=== PATIENT | male | born 1950 | race Caucasian/White ===

== ENCOUNTER → 2017-09-15 | Outpatient (CLI) | payer MEDICARE, OTHER ==
[2017-09-15 14:47] LABS: Anion Gap 11 mmol/L; Blood Urea Nitrogen 20 mg/dL (9-20); Carbon Dioxide 25 mmol/L (22-30); Chloride 103 mmol/L (98-107); Non-African American GFR(MDRD) >60 (>60 ml/min/1.73 sqM); Potassium 4.4 mmol/L (3.5-5.1); Sodium 139 mmol/L (137-145)
[2017-09-15 14:48] LABS: CH 31.3; CHCM 33.1; HCT 48.5 % (39.0-53.0); HDW 2.53; HGB 15.7 gm/dL (13.0-17.5); MCH 30.9 pg (25.0-35.0); MCHC 32.5 g/dL (31.0-37.0); MCV 95.1 fL (80.0-100.0); Mean Platelet Volume 7.9; RDW 12.9 % (11.5-15.5); WBC 6.1 k/uL (3.8-10.6)
== END | disposition home or self-care (01) ==
LOC: LABPAT 13:56
PROVIDERS: ATTEND Internal Medicine Interventional Cardiology
DX: Z01.812 Encounter for preprocedural laboratory examination (principal); I44.2 Atrioventricular block, complete
CPT/HCPCS: 36415; 80051; 82565; 84520; 85027

== ENCOUNTER 2017-09-16 08:14 | Day surgery (SDC) | payer MEDICARE, OTHER ==
[~2017-09-16 08:14] MED LIST: ceFAZolin 1,000 MG in SODIUM CHLORIDE 0.9% IRRIGATIO 250 ML IRRIGATION ONE; ceFAZolin 2 GM in SODIUM CHLORIDE 0.9% 100 ML IVPB ONE
[2017-09-16] MEDS: SODIUM CHLORIDE 0.9% 1,000 ML IV SCH ×3 (08:38→17:36)
[2017-09-16] MEDS: IOHEXOL 300 MG/ML 50 ML BOTTLE INJ ONE ×2 (09:55→14:28)
[2017-09-16] MEDS ORDERED: MIDAZOLAM 2 MG/2 ML VIAL ONE (10:14)
[2017-09-16] MEDS ORDERED: MIDAZOLAM 2 MG/2 ML VIAL IVP ONE (10:32)
[2017-09-16] MEDS ORDERED: LIDOCAINE 2% INJ 20 MG/ML SQ ONE ×2 (10:36)
[2017-09-16] MEDS: LIDOCAINE 2% INJ 20 MG/ML SQ ONE ×2 (11:00→11:42)
[2017-09-16] MEDS ORDERED: HYDROmorphone 2 MG/ML 1 ML SYRINGE ONE (12:00)
[2017-09-16] MEDS ORDERED: HYDROmorphone 2 MG/ML 1 ML SYRINGE IVP ONE (12:03)
[2017-09-16] MEDS ORDERED: SODIUM CHLORIDE 0.9% 500 ML IV ONE (12:20)
[2017-09-16] MEDS ORDERED: NOREPINEPHRIN 4 MG-0.9% NS PMX 4 MG/250 ML ML IV ONE (12:20)
[2017-09-16] MEDS ORDERED: ATROPINE SULFATE 0.1 MG/ML 10ML SYRINGE IVP ONE (12:23)
[2017-09-16] MEDS ORDERED: DOPamine DRIP 250 ML IV ONE (13:15)
[2017-09-16] MEDS ORDERED: SODIUM CHLORIDE 0.9% 1,000 ML IV ONE (15:08)
[2017-09-16] MEDS ORDERED: ACETAMINOPHEN TAB 325 MG TAB PO PRN (15:40)
[2017-09-16] MEDS ORDERED: SODIUM CHLORIDE 0.9% 1,000 ML IV SCH (15:45)
[2017-09-16 17:00] VITALS: BMI 30.9
--- NOTE | 2017-09-16 17:23 | XR ---
EXAMINATION TYPE: XR chest 1V portable DATE OF EXAM: 09/16/2017 COMPARISON: NONE HISTORY: Check pacemaker lead TECHNIQUE: Single frontal view of the chest is obtained. FINDINGS: There is no heart failure nor confluent pneumonic infiltrate. Costophrenic angles are ta r. There is a left axillary pacemaker with the lead tips over the right ventricle. Lead appear intact . There is no sign of pleural effusion. IMPRESSION: No active cardiopulmonary disease.
--- NOTE | 2017-09-16 17:27 | PCN ---
PROCEDURE NOTE DATE OF SERVICE: 09/16/2017 PROCEDURES: 1. Transvenous temporary pacemaker from the right femoral venous approach. 2. Dual-chamber permanent pacemaker placement from left infraclavicular approach. PERFORMED BY: Dr. Jimbo Haywood. CLINICAL INFORMATION: Mr. Ulises Manriquez is a 66-year-old gentleman with hypertension, who was seen by me in the office yesterday with a complete heart block picture and underlying right bundle with first-degree with intermittent complete heart block and 2:1 block. He has symptoms of dizziness, lightheadedness without actual correlation. In view of his significant conduction system disease with a documented complete heart block, he was advised to have a dual-chamber pacemaker and brought in for the procedure. The risks, benefits, options, rationale were explained to the patient and . PROCEDURE NOTE: Under local anesthesia and strict aseptic precautions, a 6-Portuguese introducer was placed in the right femoral vein. A balloon tipped 6-Portuguese catheter was positioned in the right ventricular apex. Good thresholds were obtained. Catheter was placed at the apex with a backup rate of 40 and mA of 5.0. I then unscrubbed and rescrubbed again for permanent pacemaker placement. I tried to gain access into the left axillary vein, but I had some difficulty. Dr. Damian Ring from cardiac surgery helped me with gaining the access. A 3.5 inch linear incision was made medial and parallel to the left deltopectoral groove. Using blunt dissection and cautery, I a surgical pocket was made. Hemostasis was secured. When I did some manipulation the patient had a transient vasovagal phenomena. Under fluoroscopic guidance, a 6-Portuguese introducer was placed in the axillary artery. A ventricular lead was positioned at the right ventricular septum with good threshold and capture. The lead was secured to the underlying muscle. I then tried with multiple times, the atrial lead, but I could not get a good threshold. I spent almost an hour and a half trying to position the atrial lead. I then realized that the lead was probably defective because the screwing mechanism seemed to be off. I requested Dr. Guillen to assist. He also felt the lead could be defective and suggested we use a tined lead. He gained access into the axillary artery and a 7-Portuguese introducer was placed. A tined lead was positioned in the right atrial appendage. Good thresholds and sensitivities were obtained. Both the leads were secured to the underlying muscle. The leads were then connected to the dual- chamber pacemaker. The surgical pocket was closed in 2 layers. Antibiotic solution was used to irrigate the pocket. Pocket was actually drenched with the antibiotic solution with a sponge. Good hemostasis was secured. Good thresholds and sensitivities were obtained. The patient tolerated the procedure very well. He was sent to the room in a stable condition. This was a very prolonged procedure. Moderate conscious sedation was provided for over 3 hours. There were no complications but it was a very long procedure and I spent a lot of time trying to position the atrial lead, but it appears that the lead was defective and once we changed the lead it seemed to have excellent numbers immediately. The details of the procedure were discussed with the patient and with his and son. The patient will be observed in the observation unit until tomorrow. I expect to discharge him tomorrow afternoon if he remains stable. PACEMAKER DETAILS: Pulse generator courtesy van driver [employer], model Essentio MRI DRIS 1, model mL 111, serial #[id number], then ventricular lead was an active fixation lead courtesy van driver [employer], model number in Ingevity MRI 1 bipolar 52 cm lead, model 7741, serial #[id number], position was in the right ventricular septum. Atrial lead courtesy van driver [employer], model Ingevity MRI IS1 passive atrial tined lead, 45 cm long, model 7735, serial #[id number]. Position is in the right atrial appendage. The ventricular threshold was 0.5 V at 0.5 milliseconds. The atrial lead was a threshold was 0.7 V at 0.5 mV. Right atrial threshold was 0.7 V at 0.5 milliseconds. Right ventricular threshold was 0.5 V at 0.5 milliseconds. R-waves were 9.5 V. P waves were 3.4 V. The pacemaker setting was DDDR, lower rate of 60 and high rate of 120. Patient tolerated procedure well without complication. MMODL / IJN: [id number] /
[2017-09-16] MEDS: ceFAZolin 2 GM in SODIUM CHLORIDE 0.9% 100 ML IVPB SCH ×2 (17:30→22:47)
[2017-09-16] MEDS ORDERED: HYDROcodone/APAP 5-325MG 1 EACH TAB PO PRN (17:37)
--- NOTE | 2017-09-16 20:13 | ECHOF ---
Referral Reason:r/a pericardial effusion MEASUREMENTS -------- HEIGHT: 172.7 cm WEIGHT: 92.1 kg BP: 102/61 FINDINGS -------- This was a technically adequate study. Limited study for pericardial effusion. Overall left ventricular systolic function is normal with, an EF between 55 - 60 %. There is a trivial pericardial effusion present. CONCLUSIONS -------- 1. This was a technically adequate study. 2. Limited study for pericardial effusion. 3. Overall left ventricular systolic function is normal with, an EF between 55 - 60 %. 4. There is a trivial pericardial effusion present. POLYSOMNOGRAPHER: Chris Rodriguez RDCS
[2017-09-17] MEDS: ceFAZolin 2 GM in SODIUM CHLORIDE 0.9% 100 ML IVPB SCH ×2 (05:17→10:36)
--- NOTE | 2017-09-17 06:30 | XR ---
EXAMINATION TYPE: XR chest 2V DATE OF EXAM: 09/17/2017 HISTORY: Lead placement check. REFERENCE: Previous study dated 09/16/2017. FINDINGS: There is a bipolar pacing device present on the left. The heart is mildly enlarged. The lungs are clear. There is blunting of the left CP angle. I could no t exclude a small left effusion. IMPRESSION: 1. SATISFACTORY PACEMAKER LEAD PLACEMENT. 2. MILD CARDIOMEGALY. 3. I COULD NOT EXCLUDE A SMALL LEFT EFFUSION.
[2017-09-17] MEDS ORDERED: LISINOPRIL 10 MG TAB PO SCH (09:00)
[2017-09-17 09:19] LABS: Basophils % (A) 0 %; CH 31.1; CHCM 32.9; Eosinophils % (A) 0 %; HCT 44.5 % (39.0-53.0); HDW 2.48; HGB 14.4 gm/dL (13.0-17.5); Luc # (Auto) 0.05; Luc % (Auto) 1; Lymphocytes # (A) 0.9 k/uL (1.0-4.8); Lymphocytes % (A) 11 %; MCH 30.9 pg (25.0-35.0); MCHC 32.5 g/dL (31.0-37.0); MCV 95.1 fL (80.0-100.0); Mean Platelet Volume 7.8; Monocytes # (A) 0.4 k/uL (0-1.0); Monocytes % (A) 4 %; Neutrophils # (A) 6.8 k/uL (1.3-7.7); Neutrophils % (A) 84 %; RBC 4.68 m/uL (4.30-5.90); RDW 12.8 % (11.5-15.5); WBC 8.2 k/uL (3.8-10.6); WBC (Perox) 8.23
--- NOTE | 2017-09-17 12:04 | DS ---
DISCHARGE SUMMARY DATE OF ADMISSION: 09/16/2017 DATE OF DISCHARGE: 09/17/2017 DIAGNOSES: 1. Complete heart block. 2. Hypertension. PROCEDURES PERFORMED: 1. Transvenous temporary pacemaker from the right femoral venous approach. 2. Dual-chamber permanent pacemaker, left infraclavicular location. HISTORY OF PRESENT ILLNESS: Mr. Ulises Manriquez was admitted electively for a permanent pacemaker that was performed yesterday. Temporary pacemaker was placed expeditiously. The permanent pacemaker ventricular lead was placed expeditiously, but I had a lot of difficulty positioning the atrial lead. Eventually after trying for over an hour I switched over to a bryan lead and with this we were able to get good sensitivities and thresholds. This morning, patient is asymptomatic. His pacemaker site is clean and dry. Blood pressure is 140/70, pulse rate is about 68 per minute. He is asymptomatic. Her vital signs are stable. Chest x-ray reveals no significant issues. Some blunting of left costophrenic angle is noted. I performed an echocardiogram. The LV systolic function is normal with concentric LVH and there is no evidence of any significant pericardial effusion. His hemoglobin is good. Pacer checked, parameters are excellent. Physical exam revealed no JVD. S1-S2 heard normally. Lungs are clear. Abdomen is soft, nontender. Lower extremities reveal normal pulses. The patient will be discharged this afternoon. I will give him Keflex 500 mg t.i.d. for a total of 6 doses. He is advised to wear a sling for his left arm and not to do any outstretched activity until he sees me in the office on August at 9 a.m. All discharge instructions regarding activity, diet, medications were given. He will take an extra Strength Tylenol if he has pain. I will see him in the office on the and he will be discharged later on this afternoon. MMODL / IJN: [id number] / ILENE
[2017-09-17 12:40] VITALS: BP 131/75; PULSE 69; RESP 16
[2017-09-17 13:15] VITALS: TEMP 99
--- NOTE | 2017-09-17 15:26 | ECHOF ---
Referral Reason:pericardial effusion MEASUREMENTS -------- HEIGHT: 172.7 cm WEIGHT: 92.1 kg BP: FINDINGS -------- Sinus rhythm. Limited Study There is no pericardial effusion. CONCLUSIONS -------- 1. Sinus rhythm. 2. Limited Study 3. There is no pericardial effusion. FITNESS AND WELLNESS COORDINATOR: Sierra De La Cruz RDCS
== END 2017-09-17 14:47 | disposition home or self-care (01) ==
LOC: CATHEP 08:14 → 3OBS 15:05 → CATHEP 09-17 14:47
PROVIDERS: ATTEND Internal Medicine Interventional Cardiology
DX: I44.2 Atrioventricular block, complete (principal); I45.10 Unspecified right bundle-branch block; I10 Essential (primary) hypertension; Z79.82 Long term (current) use of aspirin; Z79.899 Other long term (current) drug therapy; Z87.891 Personal history of nicotine dependence
CPT/HCPCS: 93308 ×2; 33208; 84443; 85025; 71010; 71020; 99152; 99153 ×18; C1894; C1769 ×3; C1785; C1898; J2001; J2250; J1170; J0690 ×2; J0461; J1265; Q9967

== ENCOUNTER 2018-02-23 09:20 | Inpatient (IN) | payer MEDICARE, OTHER ==
--- NOTE | 2018-02-23 11:01 | XR ---
EXAMINATION TYPE: XR chest 2V DATE OF EXAM: 02/23/2018 COMPARISON: 09/17/2017 HISTORY: 67-year-old male check vent lead position TECHNIQUE: PA and lateral views FINDINGS: Heart normal size. Aorta and pulmonary vasculature within normal limits. Strandy atelectasis mid and lower lungs. No consolidation or pleural effusion. Left anterior chest wall pacemaker generator with right atrial and right ventricular leads. Possible slight kink an irregularity in the right ventricular lead near where it traverses the left clavicle. IMPRESSION: 1. No acute cardiopulmonary process. 2. Stable positioning of the 2-lead pacemaker. However, there may be a new kink and slight irregulari ty of the right ventricular lead at the level of the clavicle.
[2018-02-23] MEDS ORDERED: ceFAZolin 1,000 MG in SODIUM CHLORIDE 0.9% IRRIGATIO 250 ML IRRIGATION ONE (11:05)
[2018-02-23] MEDS: SODIUM CHLORIDE 0.9% 1,000 ML IV SCH (11:18)
[2018-02-23 11:39] LABS: Basophils % (A) 1 %; Eosinophils # (A) 0.1 k/uL (0-0.7); Eosinophils % (A) 2 %; HCT 46.5 % (39.0-53.0); HGB 15.8 gm/dL (13.0-17.5); Lymphocytes # (A) 1.7 k/uL (1.0-4.8); Lymphocytes % (A) 27 %; MCH 30.2 pg (25.0-35.0); MCHC 33.9 g/dL (31.0-37.0); Mean Platelet Volume 7.8; Monocytes # (A) 0.5 k/uL (0-1.0); Monocytes % (A) 8 %; Neutrophils # (A) 3.7 k/uL (1.3-7.7); Neutrophils % (A) 59 %; Platelet Count 202 k/uL (150-450); RBC 5.23 m/uL (4.30-5.90); RDW 13.1 % (11.5-15.5); WBC 6.3 k/uL (3.8-10.6)
[2018-02-23 11:55] LABS: Calcium 9.4 mg/dL (8.4-10.2); Potassium 4.2 mmol/L (3.5-5.1)
[2018-02-23] MEDS ORDERED: IODIXANOL 270 MG/ML 50 ML ML IV ONE (12:30)
[2018-02-23] MEDS ORDERED: LIDOCAINE 2% INJ 20 MG/ML SQ ONE ×2 (12:34→12:55)
[2018-02-23] MEDS: MIDAZOLAM 2 MG/2 ML VIAL IV ONE ×2 (12:35→12:59)
[2018-02-23] MEDS: ceFAZolin IN SWFI 2 GM/20 ML SYRINGE IVP STA ×2 (12:54→13:00)
[2018-02-23 15:18] LABS: Glucose,Whole Blood 82 mg/dL (75-99)
[2018-02-23] MEDS ORDERED: NALOXONE 0.4 MG/ML 1 ML VIAL IV PRN (15:19)
[2018-02-23 15:53] LABS: Magnesium 2.1 mg/dL (1.6-2.3); Phosphorus 3.3 mg/dL (2.5-4.5)
[2018-02-23] MEDS: ACETAMINOPHEN TAB 325 MG TAB PO PRN (16:27)
[2018-02-23] MEDS ORDERED: HYDROcodone/APAP 5-325MG 1 EACH TAB PO PRN (18:44)
--- NOTE | 2018-02-23 20:15 | HP ---
HISTORY AND PHYSICAL This is a 67-year-old gentleman with a history of hypertensive cardiovascular disease, history of complete AV block with a permanent pacemaker that was placed in August 2017, and also obstructive sleep apnea syndrome, for which he uses a CPAP on a regular basis. This gentleman was initially seen by me in August and underwent a permanent pacemaker that was performed on September 16, 2017. He had a dual-chamber permanent pacemaker from left infraclavicular approach. He had a [employer] device with a 7-Qatari bryan lead in the right atrium and a 6-Qatari screw-in lead in the right ventricular septum. Recently patient was seen in the office about 3 days ago and was doing very well. However, about 36 hours ago he had an EKG performed at his primary care physician and the EKG revealed a right bundle with a heart rate in the 40s, and therefore I was called. I evaluated him this morning in the office and noted that his ventricular lead had a very high impedance, suggesting that this was not functioning well. From a bipolar it switched over to a unipolar and it was functioning in that mode. Therefore I recommended that we admit him to the hospital and perform an exploration of his pulse generator, assess the ventricular lead, and then consider a revision of this lead if it is defective. This discussion happened in the office this morning, and I talked to the patient as well as his at great length and explained to them that the original lead was probably defective and therefore we should replace it. He was advised to be hospitalized. The rationale, risks, benefits and options related to the procedure were explained to the patient in great detail. PAST MEDICAL HISTORY: 1. High-grade AV block diagnosed in August 2017 followed by a dual-chamber [employer] pacemaker. 2. Hypertensive cardiovascular disease. 3. Patient is hard of hearing. 4. Obstructive sleep apnea syndrome. He wears a CPAP on a regular basis. MEDICATIONS AT HOME: 1. Lisinopril/hydrochlorothiazide 20/12.5 one tablet daily. 2. Aspirin 81 mg daily. 3. Multivitamins. 4. Vitamin D. ALLERGIES: NONE. REVIEW OF SYSTEMS: Unremarkable for any major medical issues. Patient is hard of hearing. He does not have any hematemesis, melena, genitourinary symptoms, fever with chills or cough with expectoration. PHYSICAL EXAMINATION: Blood pressure was 130/80. Pulse rate was 70 per minute. HEENT: Unremarkable. Fundus was not examined by me. NECK: Supple. No JVD. I do not hear a carotid bruit. Heart exam reveals S1, S2 heard normally without any significant rub, murmur or gallop. Lungs are clear. ABDOMEN: Soft, nontender. Lower extremities reveal normal pulses. No edema. Central nervous system is normal. Pacemaker site looks clean and dry. IMPRESSION: 1. Intermittent pacemaker malfunction with evidence of high impedance in ventricular lead suggesting that this is a defective lead. 2. Hypertension. 3. Obstructive sleep apnea syndrome. 4. Patient is hard of hearing. RECOMMENDATION: I am recommending hospitalization with possible revision of his ventricular lead after checking it. Rationale, risks, benefits and options were explained to the patient and his and he was sent to the hospital from the office. MMGURWINDERL / NOEMÍN: [id number] /
--- NOTE | 2018-02-23 20:21 | PN ---
PROGRESS NOTE I evaluated Mr. Manriquez about 6:50 this evening. I came back from the office and evaluated him. His blood pressure is 128/70, pulse rate is about 70, and his pacemaker at this time seems to be functioning well. Earlier in the day, I performed an attempted revision of his ventricular lead by exploring the pocket, and the leads were checked. Atrial lead was functioning well, but ventricular lead had a very high impedance. I tried to gain access into the axillary and subclavian vein without success. It appears that the vein is occluded. I was able to gain access, but I could not advance the guidewire, and venography also showed that there may be a subtotal obstruction of the subclavian and axillary vein. Therefore I closed the pocket with the same leads and I also had performed a temporary transvenous pacemaker from the right femoral approach. Patient was then moved to the ICU. His permanent pacemaker is functioning well. The site is clean and dry. His right groin site is also clean and dry where he has a temporary pacemaker as a backup at a rate of 50. I explained to the patient and his that we will transfer him to [facility] for lead extraction, which is not performed here. He will first probably have a screw-in lead at the right ventricular apex, which will be a temporary lead connected to a pacemaker from the left internal jugular approach. Subsequently he will have a lead extraction and venoplasty and possibly an additional ventricular lead from the same side if possible. I spoke to Dr. Carlos Baltazar, the director of electrophysiology at [facility], and he will make the transfer arrangements tomorrow; he or one of his team members will perform the procedure. This matter was discussed with the patient and his in great detail. The patient is asymptomatic, doing well today. He will be observed very closely. We will keep him n.p.o. tomorrow morning and I will be sending with him the previous procedure notes as well as my history and physical. Discussed my thoughts in detail with the patient and his . They are in agreement with the above plan. PERRY / ANDI: [id number] /
--- NOTE | 2018-02-23 20:21 | CE ---
CARDIAC ELECTROPHYSIOLOGY REPORT DATE OF SERVICE: 02/23/2018. PROCEDURE: Exploration of the pacemaker pocket with interrogation of the leads directly for possible revision of ventricular lead. PERFORMED BY: Dr. Elvin Haywood. MODERATE CONSCIOUS SEDATION TIME: The patient was sedated with a combination of Versed and fentanyl for a duration of more than 1 hour. His oxygen saturation, EKG and vital signs were monitored closely. CLINICAL INFORMATION: Mr. Ulises Manriquez is a 67-year-old gentleman with a history of permanent pacemaker placed in August 2017. At that time, he presented with a complete heart block with a right bundle branch block pattern. He had a tined lead in the right atrium, a [employer] lead and a screw-in lead, which was also a [employer] lead in the right ventricle screwed into the septum. Because of the high impedance and malfunction, patient was advised to have exploration and possible revision of the ventricular lead and brought in for the procedure. He was advised to have a transvenous temporary pacemaker prior to exploration. PROCEDURE NOTE: Under strict aseptic precautions and local anesthesia, a 6-Khmer introducer was placed in the right femoral vein. Under fluoroscopic guidance, a balloon tipped pacemaker was advanced and positioned in the right ventricular apex. The threshold was 0.4 mV. The pacemaker was connected to the battery pack and this was placed at a backup rate of 40 beats per minute. The sheath was sutured. I then unscrubbed and after rescrubbing, I went ahead and performed the pacemaker pocket exploration. Under strict aseptic precautions and local anesthesia, a linear incision was made over the pulse generator in the left infraclavicular area. Blunt dissection was carried down to the pulse generator and this was released from the pocket. I then unscrewed the atrial lead and checked it for its threshold sensitivities and impedance. This worked perfectly. I then screwed the lead back in. With temporary pacemaker as a backup, I then unscrewed the ventricular lead and checked for thresholds and sensitivities and impedance. The impedance was more than 3000, suggesting that the lead was not functioning well. I then placed the lead back in the pulse generator. Using a micropuncture needle technique. After doing a venogram, I tried to gain access into the axillary vein. On the venogram the flow into the subclavian vein was somewhat suboptimal and there were already collaterals noted raising the possibility that this may be subtotally occluded. However, I gained access into the axillary vein, but I could not advance the guidewire. I then requested the assistance of Dr. Lauro Morrow who also came in to help me at this juncture. He was able to also gain access and advanced a micropuncture guidewire, but could not go beyond the axillary vein because of a subtotal occlusion. A venogram was then performed again through the micropuncture needle and noted that there was a subtotal obstruction. At this stage I decided to close the pocket in 3 layers and explained to the patient and also his that we will defer any intervention today and we will transfer him to [facility] or [facility] and I recommended that we send him to a facility where they will do a lead extraction. Patient will probably require laser lead extraction and then venoplasty and advancement of a new lead through the same axillary vein if possible. I explained this to the patient and and he was sent to the ICU and will be monitored closely. I will make transfer arrangements after due discussion with electrophysiologists either at [facility] or [facility]. I also discussed with Dr. Guillen who felt that transferring him to a facility where they will do lead extraction will be a much better approach rather than doing a new pacemaker from the right side which will then create a situation with 4 leads in his heart. This was also explained to the patient that I communicated with Dr. Guillen and we will therefore make the transfer arrangements as soon as possible. It. The patient was then transferred after the completion of the procedure to the ICU in a stable condition. The patient received Kefzol 2 g during the procedure and this will be continued at 1 g q.8 hours for a total of 5 doses. MMODL / IJN: [id number] /
[2018-02-23] MEDS: HEPARIN SODIUM,PORCINE 5,000 UNIT/ML 1 ML VIAL SQ SCH (21:11)
[2018-02-24] MEDS: SODIUM CHLORIDE 0.9% 1,000 ML IV SCH (02:00)
[2018-02-24 05:37] LABS: Basophils % (A) 1 %; Eosinophils # (A) 0.1 k/uL (0-0.7); Eosinophils % (A) 2 %; HCT 43.1 % (39.0-53.0); HGB 14.6 gm/dL (13.0-17.5); Lymphocytes # (A) 1.1 k/uL (1.0-4.8); Lymphocytes % (A) 17 %; MCH 30.2 pg (25.0-35.0); MCHC 33.8 g/dL (31.0-37.0); MCV 89.1 fL (80.0-100.0); Mean Platelet Volume 7.6; Monocytes # (A) 0.4 k/uL (0-1.0); Monocytes % (A) 7 %; Neutrophils # (A) 4.8 k/uL (1.3-7.7); Neutrophils % (A) 72 %; Platelet Count 177 k/uL (150-450); RBC 4.84 m/uL (4.30-5.90); RDW 12.9 % (11.5-15.5); WBC 6.7 k/uL (3.8-10.6)
[2018-02-24 05:50] LABS: Anion Gap 11 mmol/L; Blood Urea Nitrogen 17 mg/dL (9-20); Calcium 8.8 mg/dL (8.4-10.2); Carbon Dioxide 23 mmol/L (22-30); Chloride 106 mmol/L (98-107); Glucose 102 mg/dL (74-99); Magnesium 2.1 mg/dL (1.6-2.3); Phosphorus 2.9 mg/dL (2.5-4.5); Potassium 4.4 mmol/L (3.5-5.1); Sodium 140 mmol/L (137-145)
[2018-02-24] MEDS: ACETAMINOPHEN TAB 325 MG TAB PO PRN (06:49)
[2018-02-24] MEDS ORDERED: PANTOPRAZOLE 40 MG TABLET PO SCH (07:30)
[2018-02-24] MEDS: HEPARIN SODIUM,PORCINE 5,000 UNIT/ML 1 ML VIAL SQ SCH (07:59)
[2018-02-24] MEDS ORDERED: ceFAZolin 1,000 MG in DEXTROSE/WATER 1 50ML.BAG IVPB STA (08:06)
[2018-02-24] MEDS ORDERED: LISINOPRIL-HCTZ 20-12.5 MG 1 EACH TAB PO SCH (09:00)
[2018-02-24 09:24] VITALS: BP 118/70; PULSE 81; RESP 25; TEMP 98.1
[2018-02-24 09:37] LABS: INR 1.7 (<1.2)
[2018-02-24 09:38] LABS: Partial Thromboplastin Time 25.7 sec (22.0-30.0); Prothrombin Time 15.4 sec (9.0-12.0)
--- NOTE | 2018-02-24 09:43 | DS ---
DISCHARGE SUMMARY DATE OF ADMISSION: 02/23/2018 DATE OF TRANSFER TO [facility]: 02/24/2018 DIAGNOSES: 1. Pacemaker malfunction in a patient with a high-grade AV block with a previously placed permanent pacemaker in August 2017. 2. Hypertension. CLINICAL INFORMATION: Mr. Ulises Manriquez is a 67-year-old gentleman, history of obstructive sleep apnea syndrome, hypertension, and high-grade AV block with underlying right bundle branch block. In August of 2017 he had a dual-chamber pacemaker performed from the left infraclavicular approach. This pacemaker demonstrated malfunction with very high impedance of the ventricular lead and therefore, I brought him for the procedure yesterday. I explored the pocket and noted that the ventricular lead was indeed not functioning well with a high impedance. However, I could not advance a new guidewire into the axillary vein because of what seems to be a subtotal occlusion. I then closed the pocket with the leads back in place within the pulse generator. I also have a temporary pacemaker from the right femoral approach and this temporary pacemaker is set at 50 beats per minute as a backup. The permanent pacemaker in the left infraclavicular approach appears to have an intermittent malfunction. However, patient had a comfortable night and the pacemaker seems to be doing fine yesterday and through the night. This morning he is asymptomatic. Blood pressure is 130/70, pulse rate is 68 per minute. S1, S2 heard normally. Lungs are clear. Pacemaker site is clean and dry. The dressing will be changed in the left infraclavicular area. Right groin pacemaker site is clean and dry. Lungs are clear. Abdomen and lower exam is unchanged. PLAN: Transfer him to [facility] for possible laser lead extraction of the malfunctioning right ventricular lead and venoplasty and placement of a new lead through the same left subclavian access if possible. I discussed with Dr. Carlos Serrano of [facility], Electrophysiology Department and this transfer will be happening today and patient may have a temporary pacemaker prior to the lead extraction. The temporary pacemaker may be placed from the left jugular approach, so it is more comfortable for the patient. He now has a pacemaker in the right femoral approach. The rationale for transfer to [facility], the details and other matters were discussed in great detail with the patient as well as his . They all are in agreement and patient's transfer will happen today. MMODL / IJN: [id number] /
[2018-02-25] MEDS ORDERED: ASPIRIN 81 MG PO SCH (09:00)
== END 2018-02-24 09:56 | disposition short-term general hospital (02) | DRG 309 ==
LOC: RADXRMAIN 09:20 → 6ICU 14:22
PROVIDERS: ADMIT Internal Medicine Interventional Cardiology; ATTEND Internal Medicine Interventional Cardiology
PROC: B51N1ZZ Fluoroscopy of Left Upper Extremity Veins using Low Osmolar Contrast (ICD-10-PCS; 2018-02-23)
PROC: 0JJT0ZZ Inspection of Trunk Subcutaneous Tissue and Fascia, Open Approach (ICD-10-PCS; 2018-02-23)
PROC: 4B02XSZ Measurement of Cardiac Pacemaker, External Approach (ICD-10-PCS; principal; 2018-02-23 11:40)
DX: T82.110A Breakdown (mechanical) of cardiac electrode, initial encounter (principal); I82.A12 Acute embolism and thrombosis of left axillary vein; I11.9 Hypertensive heart disease without heart failure; G47.33 Obstructive sleep apnea (adult) (pediatric); H91.90 Unspecified hearing loss, unspecified ear; Z79.82 Long term (current) use of aspirin; Z79.899 Other long term (current) drug therapy; Y71.2 Prosthetic and other implants, materials and accessory cardiovascular devices associated with adverse incidents; Y92.239 Unspecified place in hospital as the place of occurrence of the external cause
CPT/HCPCS: 33215; 71046; 80048; 83735; 84100; 85025; 85610; 85730

== ENCOUNTER → 2024-05-30 | Outpatient (CLI) | payer MEDICARE, OTHER ==
[2024-05-30 07:45] LABS: African American GFR (CKD) >90 (>60 ml/min/1.73 sqM); Blood Urea Nitrogen 24 mg/dL (9-20); Non-African American GFR(CKD) 82 (>60 ml/min/1.73 sqM)
--- NOTE | 2024-05-30 10:00 | XR ---
EXAMINATION TYPE: XR chest 2V DATE OF EXAM: 05/30/2024 COMPARISON: 02/14/2019 TECHNIQUE: PA and lateral views submitted. HISTORY: Prostate cancer FINDINGS: Limited inspiration with basilar subsegmental atelectasis or infiltrate. Biapical pleural thickening. Heart is enlarged and there is a dual lead cardiac device. Arthropathy of the shoulders. No overt fa ilure. Osseous structures demonstrate hypertrophic and degenerative changes of the spine. IMPRESSION: 1. Favor basilar atelectasis over pneumonia correlate clinically.
--- NOTE | 2024-05-30 11:55 | NM ---
EXAMINATION TYPE: NM bone scan whole body DATE OF EXAM: 05/30/2024 COMPARISON: NONE CLINICAL INDICATION: Male, 73 years old with history of C61 Prostate cancer; Delayed whole-body scanning was performed following the injection of 24.1 mCi Tc 99m MDP. Images acq uired 3.25 hours post injection. FINDINGS: There is focal uptake identified within the right aspect of the sternoclavicular junction. Additional focal uptake identified within the mid left cervical spine and lower thoracic spine. There is increa sed uptake within the bilateral shoulder, left knee consistent with degenerative changes. No other ph otopenic areas identified. Physiologic radiotracer activity is demonstrated in the kidneys and bladder. IMPRESSION: Focal uptake identified within the right aspect of the sternoclavicular junction, mid left cervical s pine and lower thoracic spine. This may relate to degenerative changes however osseous metastasis is not excluded. Further evaluation with CT chest is recommended.
--- NOTE | 2024-05-30 12:05 | CT ---
EXAMINATION TYPE: CT abdomen pelvis w con CT DLP: 1674 mGycm, Automated exposure control for dose reduction was used. DATE OF EXAM: 05/30/2024 8:47 AM COMPARISON: Nuclear medicine bone scan 05/30/2024 CLINICAL INDICATION:Male, 73 years old with history of C61 Prostate cancer; TECHNIQUE: Standard CT of the abdomen and pelvis following the administration of 100 cc of Isovue 3 00 IV contrast material and oral contrast. Coronal and sagittal reformats were performed. FINDINGS: LOWER CHEST: Posterior dependent subsegmental atelectasis is noted. Left lower lobe 8 mm calcified gr anuloma. Additional calcified granuloma within the medial aspect of the right lower lobe. Partial vis ualization of cardiac pacemaker leads. Mildly enlarged heart. No pericardial effusion. ABDOMEN LIVER: Unremarkable GALLBLADDER AND BILE DUCTS: Unremarkable. PANCREAS: Unremarkable. SPLEEN: Unremarkable. ADRENAL GLANDS: Unremarkable. KIDNEYS AND URETERS: No evidence of hydronephrosis or renal calculus. The kidneys enhance symmetrical ly. Contrast is demonstrated within both collecting systems on the delayed phase. PELVIS BLADDER: Unremarkable REPRODUCTIVE: Prostate measures 4.3 cm in transverse dimension. Coarse central calcifications identif ied within the prostate gland. ABDOMEN & PELVIS STOMACH AND BOWEL: Stomach and duodenum are unremarkable. Enteric contrast reaches the rectum. No foc al bowel wall thickening or surrounding inflammatory changes. No evidence of bowel obstruction. PERITONEUM: No evidence of pneumoperitoneum or free fluid. VASCULATURE: No evidence of aortic aneurysm. Atherosclerotic calcification of the bilateral renal art guy origins with at least mild stenosis. MUSCULOSKELETAL: No acute osseous abnormalities. Mild multilevel degenerative disc disease. No sclero tic or lytic lesions identified. LYMPH NODES: No gross evidence for lymphadenopathy. SOFT TISSUE/ABDOMINAL WALL: Small fat filled umbilical hernia. IMPRESSION: No CT evidence for metastatic disease within the abdomen or pelvis. No osseous metastasis identified.
== END | disposition home or self-care (01) ==
LOC: RADNMMAIN 06:25
PROVIDERS: ATTEND Urology
DX: C61 Malignant neoplasm of prostate (principal); J98.11 Atelectasis; J18.9 Pneumonia, unspecified organism
CPT/HCPCS: 82565; 84520; 71046; 74177; 36415; 78306; A9503; Q9967

== ENCOUNTER → 2025-03-07 | Outpatient (CLI) | payer OTHER ==
--- NOTE | 2025-03-07 21:05 | PE ---
EXAMINATION TYPE: PET CT fusion skull to thigh DATE OF EXAM: 03/07/2025 CLINICAL INDICATION:Male, 74 years old with history of C61 PROSTATE CANCER; TECHNIQUE: Following the intravenous administration of 5.79 mCi of Ga-68 Illuccix (PSMA), whole bod y images are performed from the skull vertex to the midthigh. Images are reviewed on the computer in the coronal, axial, and sagittal planes. Reconstructed rotating images are created on independent [place] orkstation and reviewed on the computer. A non-contrast CT is performed in conjunction with the PET scan. CT DLP: 935.08 mGycm, Automated exposure control for dose reduction was used. COMPARISON: CT 05/30/2024, PET/CT None, MRI: None, nuclear medicine: 05/30/2024 FINDINGS: Mediastinal SUV mean is 1.4. Hepatic parenchyma SUV mean is 5.7. SKULL BASE AND NECK: No suspicious radiotracer activity. CHEST, MEDIASTINUM, AND HILAR REGION: No suspicious radiotracer activity. ABDOMEN AND PELVIS: Corresponding calcifications within a nonenlarged prostate gland. There is focal radiotracer activity identified within the primary right aspect of the mid to apex prostate gland however there is cross over into the left aspect with some extension into the base. Demonstrates a max SUV of 50.2. MUSCULOSKELETAL STRUCTURES: No suspicious radiotracer activity. OTHER CT: Right carotid bulb calcification. Left anterior chest wall cardiac pacemaker device with le ads terminating in the right atrium and right ventricle. Mild coronary arterial calcifications. Promi nent heart size. Few calcified granulomas within the lungs. Within Small fat filled umbilical hernia. Multilevel degenerative disease of the spine. Bilateral AC joint arthropathy with right greater than left. Bilateral shoulder arthropathy with right greater the left. Bilateral AC joint arthropathy. IMPRESSION: 1. Focal radiotracer activity within the prostate gland most consistent with reported prostate cance r. 2. No other suspicious radiotracer activity to suggest metastasis. [facility], , 03/07/2025 9:02 PM
== END | disposition home or self-care (01) ==
LOC: RADPETMAIN 14:07
PROVIDERS: ATTEND Urology
DX: C61 Malignant neoplasm of prostate (principal)
CPT/HCPCS: 78815; A9596

== ENCOUNTER → 2025-03-07 | Outpatient (CLI) | payer OTHER ==
[2025-03-07 14:31] LABS: Appearance,Urine Clear (Clear); Bilirubin,Urine Negative (Negative); Blood,Urine Negative (Negative); Color,Urine Colorless; Glucose,Urine (UA) Negative (Negative); Ketones,Urine Negative (Negative); Leukocyte Esterase,Urine Negative (Negative); Nitrite,Urine Negative (Negative); Protein,Urine Negative (Negative); Specific Gravity,Urine 1.014 (1.001-1.035); Urobilinogen,Urine <2.0 mg/dL (<2.0)
[2025-03-07 18:59] LABS: Basophils # (A) 0.06 X 10*3/uL (0.00-0.10); Eosinophils # (A) 0.14 X 10*3/uL (0.04-0.35); Eosinophils % (A) 2.3 %; HCT 45.7 % (39.6-50.0); HGB 14.9 g/dL (13.0-17.0); Lymphocytes # (A) 1.69 X 10*3/uL (0.90-5.00); MCH 30.4 pg (27.0-32.0); MCHC 32.6 g/dL (32.0-37.0); MCV 93.3 FL (80.0-97.0); Mean Platelet Volume 11.1 FL (9.5-12.2); Monocytes # (A) 0.47 X 10*3/uL (0.20-1.00); Monocytes % (A) 7.8 %; NRBC Per 100 WBC 0 X 10*3/uL (0.00-0.01); Neutrophils # (A) 3.65 X 10*3/uL (1.80-7.70); Neutrophils % (A) 60.6 %; Platelet Count 212 X 10*3/uL (140-440); RDW 13.4 % (11.5-14.5); WBC 6.03 X 10*3/uL (4.50-10.00)
[2025-03-07 19:16] LABS: BUN/Creat Ratio 18.73 Ratio (12.00-20.00); Blood Urea Nitrogen 20.6 mg/dL (9.0-27.0); Calcium 9.3 mg/dL (8.7-10.3); Carbon Dioxide 24.9 mmol/L (21.6-31.8); Chloride 102 mmol/L (96-109); Glucose 135 mg/dL (70-110); Potassium 4.2 mmol/L (3.5-5.5); Sodium 140 mmol/L (135-145)
== END | disposition home or self-care (01) ==
LOC: LABPAT 13:22
PROVIDERS: ATTEND Urology
DX: Z01.812 Encounter for preprocedural laboratory examination (principal); C61 Malignant neoplasm of prostate
CPT/HCPCS: 80048; 81003; 85025; 86850; 86900; 86901; 87086

== ENCOUNTER 2025-03-14 10:24 | Day surgery (SDC) | payer OTHER ==
[2025-03-11 15:59] VITALS: BMI 32.6
--- NOTE | 2025-03-12 11:58 | P.HPIHPCON ---
History of Present Illness H&P Date: 03/12/25 Chief Complaint: Prostate cancer This is a 74-year-old male with history of [place] 9 prostate cancer. Of note this was diagnosed back in 2023, patient declined treatments at that time and he agreed to proceed with treatments at this time. Underwent a PSMA PET scan that showed no evidence of metastatic disease. Option of robotic radical prostatectomy versus radiation therapy was discussed in details. Risk and benefit of each approach were discussed. He agreed to proceed with a robotic radical prostatectomy. He is aware of the risk which include but not limited to bleeding, infection, injury to nearby organs. Discussed also risk of urinary incontinence, erectile dysfunction. Risk of cancer recurrence and the need for additional treatments and postoperative surveillance was discussed. He understood all risk and agreed to proceed Consent for Procedure: I have explained the operation/procedure to the patient, including the risks, benefits, side effects, alternative therapies (including not receiving the proposed treatment or service), the likelihood of the patient achieving his/her goals, and potential recuperation problems for the procedure/sedation/analgesia, as well as any blood products, if indicated. I also explained to the patient the risks, benefits and side effects of the alternatives, as well as the risks related to not receiving the proposed procedure, care, treatment, or services. Past Medical History Past Medical History: Cancer, Hyperlipidemia, Hypertension, Prostate Disorder, Sleep Apnea/CPAP/BIPAP Additional Past Medical History / Comment(s): prostate CA; "Irreg. beating Heart". pacemaker 08/2017. uses CPAP machine History of Any Multi-Drug Resistant Organisms: None Reported Additional Past Surgical History / Comment(s): oral surgery, colonoscopy Past Anesthesia/Blood Transfusion Reactions: No Reported Reaction Smoking Status: Former smoker - Past Family History Mother Family Medical History: No Reported History Medications and Allergies Home Medications Medication Instructions Recorded Confirmed Type Aspirin [Adult Low Dose Aspirin EC] 81 mg PO Q48H 09/15/17 03/11/25 History Cholecalciferol (Vitamin D3) 2,000 unit PO DAILY 09/15/17 03/11/25 History [Vitamin D3] Lisinopril-Hctz 20-12.5 mg 1 tab PO DAILY 09/15/17 03/11/25 History [Zestoretic 20-12.5] Multivitamin [Men's Multi-Vitamin] 1 tab PO DAILY 09/15/17 03/11/25 History Atorvastatin [Lipitor] 20 mg PO HS 03/11/25 03/11/25 History Ezetimibe [Zetia] 10 mg PO DAILY 03/11/25 03/11/25 History Metoprolol Succinate [Toprol XL] 50 mg PO DAILY 03/11/25 03/11/25 History Allergies Allergy/AdvReac Type Severity Reaction Status Date / Time No Known Allergies Allergy Verified 03/11/25 15:47 Surgical - Exam - General no distress, no pain - Eyes normal ocular movement, no pale - ENT normal nares, normal mucosa - Respiratory normal expansion, normal respiratory effort - Abdomen Abdomen: soft, non tender, no distended - Psychiatric oriented to time, oriented to person, oriented to place Assessment and Plan Assessment: OR for robotic radical prostatectomy with bilateral pelvic lymph node dissection
[2025-03-14] MEDS: IV FLUID CONTINUATION 1,000 ML IV ONE ×2 (11:04→11:11)
[2025-03-14] MEDS: LACTATED RINGERS 1,000 ML IV SCH ×2 (11:15→17:44)
[2025-03-14] MEDS: ONDANSETRON 4 MG/2 ML VIAL IVP ONE (11:16)
[2025-03-14] MEDS: DEXAMETHASONE SOD PHOSPHATE 4 MG/ML 1 ML VIAL IV ONE (11:16)
[2025-03-14] MEDS: fentaNYL (PF) 50 MCG/ML 2 ML AMP IVP ONE (11:43)
[2025-03-14] MEDS: MIDAZOLAM 2 MG/2 ML VIAL IVP ONE (11:43)
[2025-03-14] MEDS: HEPARIN SODIUM,PORCINE 5,000 UNIT/ML 1 ML VIAL SQ PRN (11:56)
--- NOTE | 2025-03-14 11:56 | P.ANPRN ---
Procedure Note - Anesthesia - Nerve Block Performed Bilateral Erector Spinae Single Time Out Performed: Yes (1142) Date of Procedure: 03/14/25 Procedure Start Time: 11:43 Procedure Stop Time: 11:48 Location of Patient: PreOp Indication: Acute Post-Operative Pain, Requested by Surgeon Specifically requested for management of pain by : Bravo Babcock Sedation Type: Sedate with meaningful contact maintained Preparation: Sterile Prep Position: Sitting Catheter: None Needle Types: Pajunk Needle Gauge: 21 Ultrasound used to visualize needle placement: Yes Ultrasound used to observe medication spread: Yes Injectate: 0.5% Ropivacaine (see comment for volume) (15cc+10cc nacl pf+uthwatqu0ed each side) Blood Aspirated: No Pain Paresthesia on Injection Noted: No Resistance on Injection: Normal Image Stored and Saved: Yes Events: Uneventful and Well Tolerated
[2025-03-14] MEDS ORDERED: HYDROmorphone 2 MG/ML 1 ML SYRINGE IVP PRN (12:04)
[2025-03-14] MEDS ORDERED: ONDANSETRON 4 MG/2 ML VIAL IVP PRN (12:04)
[2025-03-14] MEDS ORDERED: HYDROcodone/APAP 5-325MG 1 EACH TAB PO PRN (12:05)
[2025-03-14] MEDS ORDERED: DEXAMETHASONE SOD PHOSPHATE 4 MG/ML 1 ML VIAL ONE (12:15)
[2025-03-14] MEDS ORDERED: GLYCOPYRROLATE 0.2 MG/ML 2 ML VIAL ONE (12:15)
[2025-03-14] MEDS ORDERED: LIDOCAINE 1% INJ 10MG/ML (20 ML MDV) ONE (12:15)
[2025-03-14] MEDS ORDERED: fentaNYL (PF) 50 MCG/ML 2 ML AMP ONE (12:15)
[2025-03-14] MEDS ORDERED: ROCURONIUM 10 MG/ML (5 ML VIAL) IV ONE (12:15)
[2025-03-14] MEDS ORDERED: HYDROmorphone (PF) 1 MG/ML ONE (12:15)
[2025-03-14] MEDS ORDERED: ROPIVACAINE 5 MG/ML 30 ML VIAL ONE (12:15)
[2025-03-14] MEDS ORDERED: NEOSTIGMINE 1 MG/ML 10 ML VIAL ONE (12:15)
[2025-03-14] MEDS ORDERED: SUCCINYLCHOLINE CHLORIDE 200 MG/10 ML VIAL IV ONE (12:15)
[2025-03-14] MEDS ORDERED: SODIUM CHLORIDE 0.9% (PF) 10 ML VIAL ONE (12:15)
[2025-03-14] MEDS ORDERED: PHENYLEPHRINE-0.9% NACL SYG 1,000 MCG/10 ML SYRINGE ONE (12:15)
[2025-03-14] MEDS ORDERED: PROPOFOL 10 MG/ML 20 ML VIAL IV ONE (12:15)
[2025-03-14] MEDS: ceFAZolin 2 GM in DEXTROSE 5% IN WATER 50 ML IVPB PRN (12:18)
[2025-03-14] MEDS: BUPIVACAINE (PF) 0.25% 30 ML VIAL SQ ONE ×2 (12:44→16:35)
[2025-03-14] MEDS: LACTATED RINGERS 1,000 ML IV ONE (13:48)
--- NOTE | 2025-03-14 16:36 | P.OP ---
Date of Procedure: 03/14/25 Preoperative Diagnosis: Prostate cancer Postoperative Diagnosis: Same Procedure(s) Performed: Robotic assisted laparoscopic radical prostatectomy with bilateral pelvic node dissection Implants: none Anesthesia: KEVINA Surgeon: Bravo Babcock Pathology: other (Prostate, bilateral seminal vesicle, bilateral pelvic nodes) Condition: stable Disposition: PACU Indications for Procedure: This is a 74-year-old male with history of [place] 9 prostate cancer. Of note this was diagnosed back in 2023, patient declined treatments at that time and he agreed to proceed with treatments at this time. Underwent a PSMA PET scan that showed no evidence of metastatic disease. Option of robotic radical prostatectomy versus radiation therapy was discussed in details. Risk and benefit of each approach were discussed. He agreed to proceed with a robotic radical prostatectomy. He is aware of the risk which include but not limited to bleeding, infection, injury to nearby organs. Discussed also risk of urinary incontinence, erectile dysfunction. Risk of cancer recurrence and the need for additional treatments and postoperative surveillance was discussed. He understood all risk and agreed to proceed Description of Procedure: After preoperative antibiotics were started, the patient was taken to the operating room. Anesthesia was induced and the patient was placed in a supine position, with adequate padding of the pressure points, shoulders, back, legs and arms. He was then prepped and draped in the standard fashion. A critical pause was performed using two patient identifiers. A 16F giordano catheter was placed to gravity drainage. A pneumo-peritoneum was created with placement of a Veress needle to 20 mm Hg without complication, and a 8 Fr trocar was placed above the umbillicus. Under direct vision a 8mm robotic ports was placed lateral to each rectus slightly below the camera port. The left iliac fossa 8mm port was placed. The right purchasing assistant right iliac fossa 12mm port and right paramedian 5mm portwere placed. After the patient was placed in the trendelenberg position, the robot was then docked to the 8mm robotic ports and then each robotic arm and tower was checked in relation to the patient's legs and hands to avoid inadvertent compression. The peritoneal cavity was inspected. An inverted U-shaped incision began laterally to the left medial umbilical ligament and extended high across the midline to the right umbilical ligament. The limbs of the "U" extended to the level of the vasa on both sides. We next developed the preperitoneal space and the space of Retzius. Cautery was used to dissected the bladder away from the prostate. After the anterior bladder neck was incised and the bladder entered the the posterior bladder neck was exposed and the ureteral orifces identified. The posterior bladder neck was then incised and dissected away from the prostate. The vas and the seminal vesicles were now exposed and dissected to their insertions into the prostate and were not spared. The posterior layer of the Denonvillier's fascia was incised to enter lee the plane between prostate and perirectal fat. Each lateral pedicle was controlled with vessel sealer. No nerve preservation was performed bilaterally. Along the right apex was stuck, it was concerning for extraprostatic extension, I was able to mobilize the prostate away from the rectum, there was no evidence of rectal injury. The puboprostatic ligament was incised where it inserted into the apex of the prostate and a plane between urethra and dorsal venous complex developed to expose the anterior urethral surface. The anterior wall of the urethra was transected with the cut setting a few millimeters distal to the apex of the prostate. The dorsal vein was ligated using 3-0 V lock bilateral obturator and external iliac lymph node packets were carefully dissected after careful visualization of the hypogastric artery and obturator nerve. There was careful attention paid to hemostasis with judicious use of cautery. Patient had significant amount of intrapelvic fat which made the lymph node dissection very challenging, in addition the external iliac artery was slightly medialized, visualization of the vein very challenging. Given the concern for vascular injury limited lymph node removal was performed along the iliac vein. The urethrovesical anastomosis was performed . the posterior denovillers was reapproximated using 3-0 V lock. A 6 and 6 inch 3-0 V-Lock suture was used to anastomose the urethra and bladder, starting at the 6:00 posterior position. Mucosa was secured in every stitch, to ensure a mucosa to mucosa anastomosis. The stitch was regularly cinched and the anastomosis tightened. Care was taken to not violate the ureteral orifices. The Giordano catheter was advanced, the bladder filled, and the anastomosis was tested, as described above. Anastomsis was watertight at 150 mL The periumbilical fascia was closed with 1-0-PDS suture in figure of eight fashion. All ports were closed with a subcuticular 4-0 monocryl and Dermabond. Sponge, instrument, and needle counts were correct at the end of the case x2. All specimens including prostate and lymph nodes were sent to pathology for diagnosis and will be available in a week. The patient tolerated the surgery well and without complication. He awoke without difficulty and was taken to the recovery room in stable condition
[2025-03-14] MEDS: HYDROmorphone 0.5 MG/0.5 ML SYRINGE IVP PRN (17:00)
[2025-03-14] MEDS: KETOROLAC 15 MG/ML 1 ML VIAL IVP SCH (18:20)
[2025-03-14] MEDS: D5-0.45% NACL WITH KCL 20MEQ/L 1,000 ML IV SCH (18:30)
[2025-03-14] MEDS ORDERED: HEPARIN SODIUM,PORCINE 5,000 UNIT/ML 1 ML VIAL SQ SCH (20:00)
[2025-03-14] MEDS: HEPARIN SODIUM,PORCINE 5,000 UNIT/ML 1 ML VIAL SQ SCH (20:10)
[2025-03-14] MEDS: ATORVASTATIN 20 MG TAB PO SCH (20:11)
[2025-03-14 20:34] LABS: Glucose,Whole Blood 165 mg/dL (70-110)
[2025-03-15 01:37] VITALS: RESP 16
[2025-03-15 07:41] VITALS: BP 101/46; PULSE 67; TEMP 98.1
[2025-03-15] MEDS: HEPARIN SODIUM,PORCINE 5,000 UNIT/ML 1 ML VIAL SQ SCH (08:37)
[2025-03-15] MEDS: EZETIMIBE 10 MG TAB PO SCH (08:37)
[2025-03-15] MEDS: METOPROLOL SUCCINATE (ER) 50 MG TAB.ER.24H PO SCH (08:37)
[2025-03-15] MEDS: LISINOPRIL-HCTZ 20-12.5 MG 1 EACH TAB PO SCH (10:17)
--- NOTE | 2025-03-15 21:50 | P.DS ---
Providers Attending physician: Bravo Babcock MD Primary care physician: BRIAN JOSEPH DO Hospital Course: This is a 69-year-old male with history of [place] 9 prostate cancer. Underwent a robotic radical prostatectomy on March 14. Please see op note dated March 14 for surgery details. Patient was admitted to the hospital postoperatively. Patient was discharged home on postop day #1, with a Jay catheter. At time of discharge he was tolerating a diet, ambulating, and pain was controlled Patient Condition at Discharge: Good Plan - Discharge Summary Discharge Rx Participant: Yes New Discharge Prescriptions: New Ketorolac [Toradol] 10 mg PO Q6HR PRN #15 tab PRN Reason: Pain Ciprofloxacin HCl [Cipro] 500 mg PO Q12HR 3 Days #6 tab No Action Lisinopril-Hctz 20-12.5 mg [Zestoretic 20-12.5] 1 tab PO DAILY Multivitamin [Men's Multi-Vitamin] 1 tab PO DAILY Cholecalciferol (Vitamin D3) [Vitamin D3] 2,000 unit PO DAILY Aspirin [Adult Low Dose Aspirin EC] 81 mg PO Q48H Metoprolol Succinate [Toprol XL] 50 mg PO DAILY Ezetimibe [Zetia] 10 mg PO DAILY Atorvastatin [Lipitor] 20 mg PO HS Discharge Medication List Aspirin [Adult Low Dose Aspirin EC] 81 mg PO Q48H 09/15/17 [History] Cholecalciferol (Vitamin D3) [Vitamin D3] 2,000 unit PO DAILY 09/15/17 [History] Lisinopril-Hctz 20-12.5 mg [Zestoretic 20-12.5] 1 tab PO DAILY 09/15/17 [History] Multivitamin [Men's Multi-Vitamin] 1 tab PO DAILY 09/15/17 [History] Atorvastatin [Lipitor] 20 mg PO HS 03/11/25 [History] Ezetimibe [Zetia] 10 mg PO DAILY 03/11/25 [History] Metoprolol Succinate [Toprol XL] 50 mg PO DAILY 03/11/25 [History] Ciprofloxacin HCl [Cipro] 500 mg PO Q12HR 3 Days #6 tab 03/15/25 [Rx] Ketorolac [Toradol] 10 mg PO Q6HR PRN #15 tab 03/15/25 [Rx] Follow up Appointment(s)/Referral(s): Bravo Babcock MD [STAFF PHYSICIAN] - 03/25/25 1:00 pm Patient Instructions/Handouts: *Surgery [facility] - Jay Catheter Instructions, Urinary Leg Bag (GEN), How to Change a Catheter Drainage Bag (DC) Activity/Diet/Wound Care/Special Instructions: Start your antibiotics the Cipro 1 day prior to your follow-up appointment No heavy lifting or straining for 4 weeks You may shower, no baths It is normal to have blood in the urine Discharge Disposition: HOME SELF-CARE
== END 2025-03-15 13:12 | disposition home or self-care (01) ==
LOC: OR 10:24 → 4SSUR 16:35 → OR 03-15 13:12
PROVIDERS: ATTEND Urology
DX: C61 Malignant neoplasm of prostate (principal); G89.18 Other acute postprocedural pain; I10 Essential (primary) hypertension; E78.5 Hyperlipidemia, unspecified; G47.30 Sleep apnea, unspecified; Z79.899 Other long term (current) drug therapy; Z79.82 Long term (current) use of aspirin; Z95.0 Presence of cardiac pacemaker; Z87.891 Personal history of nicotine dependence
CPT/HCPCS: 38571; 55866; S2900; 64468; 88307; 88309